=== PATIENT | female | born 1970 | race Caucasian/White ===

== ENCOUNTER 2021-03-10 23:56 | Emergency (ER) | payer SELFPAY ==
[2021-03-11] MEDS ORDERED: LIDOCAINE/EPI 2% 1:100,00 (XYLOCAINE) 20 ML VIAL INJ ONE (01:45)
[2021-03-11] MEDS ORDERED: LIDOCAINE/EPI 1%-1:100,000 (XYLOCAINE) 20ML INJ ONE (01:45)
[2021-03-11] MEDS ORDERED: CLINDAMYCIN 600 MG/4ML (CLEOCIN) VIAL IM ONE (01:45)
[2021-03-11] MEDS ORDERED: LIDOCAINE/EPI 1%-1:200,000 (XYLOCAINE) 30 ML VIAL INJ ONE (01:45)
[2021-03-11] MEDS ORDERED: CLIN-144 PO (04:18)
[2021-03-11] MEDS ORDERED: ACHD5005 PO (04:18)
--- NOTE | 2021-03-11 04:19 | ED EENT ---
History of Present Illness General Chief Complaint: Dental Problems/Pain Stated Complaint: DENTAL PAIN Nursing Triage Note: TO ED VIA POV AND AMBULATORY TO FT1 WITH C/O RIGHT SIDE FACIAL SWELLING. STATES SHE BROKE TOOTH A WEEK AGO. NO DENTAL APPT CURRENTLY. Source: patient Exam Limitations: no limitations History of Present Illness Date Seen by Provider: Mar 11, 2021 Time Seen by Provider: 01:10 Initial Comments This 50-year-old woman presents to the emergency room with complaints of right facial pain and swelling related to a broken molar. The molar broke about a week ago and she has had escalating pain and swelling over the past 2 days. She has had no purulent drainage and no fever. She has not yet been able to establish with a dentist for this problem. Allergies and Home Medications Allergies Coded Allergies: Penicillins (Verified Allergy, Intermediate, Swelling, 03/11/21) Patient Home Medication List Home Medication List Reviewed: Yes Clindamycin HCl (Clindamycin HCl) 300 Mg Capsule, 300 MG PO QID Prescribed by: ADELIA AMAYA on 03/11/21 0418 Hydrocodone/Acetaminophen (Hydrocodone-Acetamin 5-325 mg) 1 Each Tablet, 1 TAB PO Q4H PRN for PAIN-BREAKTHROUGH Prescribed by: ADELIA AMAYA on 03/11/21 0419 Review of Systems Review of Systems Constitutional: no symptoms reported Eyes: No Symptoms Reported Ears: No Symptoms Reported Nose: no symptoms reported Mouth: see HPI Throat: no symptoms reported Skin: see HPI Neurological: No Symptoms Reported Hematologic/Lymphatic: No Symptoms Reported Immunological/Allergic: no symptoms reported Past Osyxpcs-[place]fr[place]-Wevlie Hx Patient Social History Tobacco Use?: No Substance use?: No Alcohol Use?: No Immunizations Up To Date Influenza Vaccine Up-to-Date: No; Not Current COVID19 Vaccine Parts Cleaner: MODERNA Past Medical History Surgeries: No Respiratory: No Cardiac: No Neurological: No : No Reproductive Disorders: No Genitourinary: No Gastrointestinal: No Musculoskeletal: No Endocrine: No HEENT: No Cancer: No Psychosocial: No Integumentary: No Physical Exam Vital Signs Vital Signs - First Documented 03/11/21 00:38 Temp 36.9 Pulse 92 Resp 18 B/P (MAP) 151/91 (111) Pulse Ox 100 O2 Delivery Room Air Height, Weight, BMI Height: '" Weight: lbs. oz. kg; BMI Method: General Appearance: WD/WN, no apparent distress Eyes: bilateral eye normal inspection, bilateral eye PERRL, bilateral eye EOMI Ears: right ear auricle normal, right ear canal normal, right ear TM normal Nose: normal inspection Mouth/Throat: pharynx normal, other (Fractured molar noted. Edema and ten derness of the right maxillary region. Bedside ultrasound revealed possible fluid collection in that region.) Neck: normal inspection Cardiovascular: regular rate, rhythm, no edema, no murmur Respiratory: lungs clear, normal breath sounds, no respiratory distress Neurologic/Psychiatric: engagement executive II-XII nml as tested, no motor/sensory deficits, alert, normal mood/affect, oriented x 3 Skin: normal color, warm/dry Procedures/Interventions Progress Topical anesthetic was provided with HurriCaine spray on gauze. Injection of lidocaine with epinephrine was then administered. An 18-gauge needle was used to attempt aspiration. Unfortunately, no purulent material was yielded with aspiration. Bleeding was controlled with pressure and gauze. Progress/Results/Core Measures Results/Orders My Orders Medications Given in ED Vital Signs/I&O Blood Pressure Mean: 111 Progress Progress Note : Progress Note Antibiotic therapy was initiated with a clindamycin injection. Bedside ultrasound was suspicious for fluid collection suggesting abscess overlying the maxillary region. Patient was offered attempt at aspirating this area. She requested I attempt aspiration. Unfortunately, aspiration did not yield any purulent material. Take-home pack of hydrocodone was dispensed. Departure Impression Primary Impression: Dental abscess Additional Impression: Broken tooth Qualified Codes: S02.5XXA - Fracture of tooth (traumatic), initial encounter for closed fracture Disposition: 01 HOME, SELF-CARE Condition: Improved Departure-Patient Inst. Decision time for Depature: 04:16 Referrals: NO,LOCAL PHYSICIAN (PCP/Family) Primary Care Physician Patient Instructions: Dental Pain Add. Discharge Instructions: Complete your antibiotics as prescribed. Use ibuprofen up to 600 mg every 6 hours as needed for primary pain control. Add hydrocodone as prescribed for pain not controlled by ibuprofen. Follow-up with a dentist as soon as possible for treatment and extraction of teeth as indicated. Return to care if you have worsening symptoms, including development of fever. Call with questions or concerns. All discharge instructions reviewed with patient and/or family. Voiced understanding. Scripts Hydrocodone/Acetaminophen (Hydrocodone-Acetamin 5-325 mg) 1 Each Tablet 1 TAB PO Q4H PRN for PAIN-BREAKTHROUGH, #10 TAB Prov: ADELIA OTERO MD 03/11/21 Clindamycin HCl (Clindamycin HCl) 300 Mg Capsule 300 MG PO QID, #40 CAP Prov: ADELIA OTERO MD 03/11/21 ADELIA OTERO MD Mar 11, 2021 04:19
[2021-03-11 04:23] VITALS: BP 142/89
== END 2021-03-11 04:21 | disposition home or self-care (01) ==
LOC: EDUNIT# 23:56 → ER 23:59
DX: S02.5XXA Fracture of tooth (traumatic), initial encounter for closed fracture (principal); K04.7 Periapical abscess without sinus; X58.XXXA Exposure to other specified factors, initial encounter
CPT/HCPCS: 96372; 99284